=== PATIENT | female | born 1940 | race Caucasian/White ===

== ENCOUNTER 2018-10-15 13:04 | Inpatient (IN) | payer MEDICARE ==
[~2018-10-15] VITALS: Ht 165.1 cm; Wt 82.0 kg
[~2018-10-15 13:04] MED LIST: NIFEDIPINE
[2018-10-15] MEDS ORDERED: LIDOCAINE HCL 2% 5ML SYRINGE IV ONE (13:48)
[2018-10-15] MEDS ORDERED: VECURONIUM BROMIDE 10 MG/VIAL IV ONE (13:48)
[2018-10-15] MEDS ORDERED: ATROPINE SULFATE 1MG/10ML SYR ONE (13:48)
[2018-10-15] MEDS ORDERED: ETOMIDATE 2MG/ML 10ML VIAL IV ONE (13:48)
[2018-10-15] MEDS ORDERED: SODIUM CHLORIDE 0.9% 10ML VIAL ONE (13:48)
[2018-10-15] MEDS ORDERED: EPINEPHRINE 0.1MG/ML (1:10,000) 10ML SYR ONE ×2 (13:48→13:53)
[2018-10-15] MEDS ORDERED: SODIUM BICARBONATE 7.5% 0.9 MEQ/ML 50ML SYR IV ONE (13:53)
[2018-10-15] MEDS ORDERED: CALCIUM CHLORIDE 1GM/10ML SYR IV ONE ×2 (13:53→15:15)
[2018-10-15] MEDS ORDERED: AMIODARONE HCL 50MG/ML 3ML VIAL IV ONE (13:53)
[2018-10-15] MEDS ORDERED: DEXTROSE 50% WATER 50ML SYRINGE IV ONE ×2 (13:53→15:15)
[2018-10-15 14:05] LABS: BG BASE EXCESS -15.4 mmol/L (-2.0-2.0); BG CARBOXYHEMOGLOBIN 0.8 % (0.5-1.5); BG DEOXYHEMOGLOBIN 8.1 % (0.0-5.0); BG FRACTION INSPIRED OXYGEN 32; BG HCO3 ACT 10.5 mmol/L (22.0-26.0); BG METHEMOGLOBIN 0.3 % (0.0-1.5); BG OXYGEN SATURATION 91.8 % (92.0-98.5); BG OXYHEMOGLOBIN 90.8 % (94.0-97.0); BG PCO2 25.2 mmHg (35.0-45.0); BG PH 7.239 (7.350-7.450); BG PO2 81.3 mmHg (75.0-100.0); BG SAMPLE SITE RIGHT RADIAL; BG TOTAL HEMOGLOBIN 8.6 g/dL (12.0-18.0); BG VENT MODE NASAL CANNULA
[2018-10-15] MEDS ORDERED: SODIUM BICARBONATE 8.4% 1 MEQ/ML 50ML SYR IV ONE (14:30)
[2018-10-15] MEDS ORDERED: NOREPINEPHRINE 4 MG in DEXT 5% WATER 246 ML IV ONE (14:30)
[2018-10-15] MEDS ORDERED: NOREPINEPHRINE 4MG/250ML PMX 250 ML IV SCH (14:45)
[2018-10-15 15:12] LABS: CHLORIDE 92 mEq/L (98-107)
[2018-10-15 15:15] LABS: HEMOGLOBIN. 7.9 g/dL (12.0-16.0); INR 1.5; MEAN CORPUSCULAR HEMOGLOBIN 32.2 pg (28.0-32.0); MEAN CORPUSCULAR VOLUME 101.6 fL (81.0-99.0); MEAN PLATELET VOLUME 8.4 fl (7.4-10.4); PARTIAL THROMBOPLASTIN TIME 29.5 sec (23.4-31.0); PLATELET 371 x1000/uL (130-400); PROTHROMBIN TIME 15.2 sec (9.1-11.1); RED BLOOD CELL COUNT 2.47 mill/uL (4.2-5.4); RED CELL DISTRIBUTION WIDTH 14.4 % (11.6-14.6)
[2018-10-15] MEDS ORDERED: VANCOMYCIN 1 G PREMIX 200 ML IV SCH (15:15)
[2018-10-15] MEDS ORDERED: INSULIN REGULAR (HUMULIN R) 300UNITS/3ML IV ONE (15:15)
[2018-10-15] MEDS ORDERED: GENTAMICIN 80MG PREMIX 100 ML IV ONE (15:15)
[2018-10-15] MEDS ORDERED: LEVOFLOXACIN 500MG PREMIX 100 ML IV ONE (15:15)
[2018-10-15 15:16] LABS: ETHANOL BLOOD < 10 mg/dL
[2018-10-15 15:34] LABS: PHOSPHORUS 8.6 mg/dL (2.5-4.9)
[2018-10-15 15:41] LABS: PLATELET ESTIMATE NORMAL
[2018-10-15 16:21] VITALS: BP 93/57
[2018-10-15] MEDS ORDERED: SODIUM CHLORIDE 0.9% 1000ML BAG (SEPSIS BOLUS) IV ONE (16:45)
== END 2018-10-15 17:19 | disposition expired | DRG 871 ==
LOC: ER 13:11 → EDBEDREQSVC 14:24 → EDBEDREQ 14:24 → MICUNO 15:06 → EDBEDREQ 15:13 → ENRESERV 15:36 → CANRESERV 15:36 → ENRESERV 16:13
PROVIDERS: ADMIT Internal Medicine; ATTEND Internal Medicine
PROC: 02HV33Z Insertion of Infusion Device into Superior Vena Cava, Percutaneous Approach (ICD-10-PCS; principal; 2018-10-15)
PROC: B548ZZA Ultrasonography of Superior Vena Cava, Guidance (ICD-10-PCS; 2018-10-15)
PROC: 5A12012 Performance of Cardiac Output, Single, Manual (ICD-10-PCS; 2018-10-15)
PROC: 0BH17EZ Insertion of Endotracheal Airway into Trachea, Via Natural or Artificial Opening (ICD-10-PCS; 2018-10-15)
PROC: 5A1935Z Respiratory Ventilation, Less than 24 Consecutive Hours (ICD-10-PCS; 2018-10-15)
PROC: 0W9D3ZZ Drainage of Pericardial Cavity, Percutaneous Approach (ICD-10-PCS; 2018-10-15)
DX: A41.9 Sepsis, unspecified organism (principal); J18.9 Pneumonia, unspecified organism; J96.01 Acute respiratory failure with hypoxia; N18.6 End stage renal disease; R65.21 Severe sepsis with septic shock; I13.11 Hypertensive heart and chronic kidney disease without heart failure, with stage 5 chronic kidney disease, or end stage renal disease; J98.11 Atelectasis; N17.9 Acute kidney failure, unspecified; D64.9 Anemia, unspecified; E11.22 Type 2 diabetes mellitus with diabetic chronic kidney disease; E78.5 Hyperlipidemia, unspecified; I46.9 Cardiac arrest, cause unspecified; Z86.73 Personal history of transient ischemic attack (TIA), and cerebral infarction without residual deficits; Z99.2 Dependence on renal dialysis; Z88.0 Allergy status to penicillin; Z88.8 Allergy status to other drugs, medicaments and biological substances
CPT/HCPCS: 36415; 36569; 36600; 71045; 76937; 82375; 82805; 83605; 83735; 84100; 84484; 93005; 96365; 99291; A4216; C1725; G0482; J0282; J0461; J1580; J1815; J1956; J3490; J7030; J7040; J7060